=== PATIENT | female | born 1945 | race Caucasian/White ===

== ENCOUNTER 2016-11-20 13:19 | Emergency (ER) | payer OTHER ==
[~2016-11-20] VITALS: Ht 165.1 cm; Wt 83.5 kg
[~2016-11-20 13:19] MED LIST: TYLOTC500 PO
[2016-11-20 13:24] VITALS: Ht 165.1 cm; Wt 83.5 kg
[2016-11-20] MEDS ORDERED: ONDANSETRON INJ 2 MG/ML 2 ML VIAL IV STA (13:41)
[2016-11-20] MEDS ORDERED: SODIUM CHLORIDE 0.9% 500ML 500 ML IV STA (13:41)
[2016-11-20] MEDS ORDERED: HYDROmorphone INJ 1 MG/ML SYR IV STA (13:41)
[2016-11-20] MEDS ORDERED: HYDROmorphone INJ 1 MG/ML SYR ONE (13:42)
[2016-11-20] MEDS ORDERED: KETAMINE HCL INJ 50 MG/ML 10 ML VIAL IV STA (14:20)
[2016-11-20] MEDS ORDERED: PROPOFOL IV EMULSION 10 MG/ML 20 ML VIAL IV STA (14:20)
[2016-11-20] MEDS ORDERED: METOCLOPRAMIDE HCL INJ 5 MG/ML 2 ML VIAL ONE (14:21)
--- NOTE | 2016-11-20 14:21 | EMERGENCY ROOM VISIT NOTE ---
History Report prepared by Nahed: Asim Patel Under the Supervision of: Dr. Rhett Dumas M.D. First contact with patient: 13:40 Chief Complaint: HIP PAIN Stated Complaint: HIP PAIN History of Present Illness The patient is a 71 year old female who presents to the Emergency Room with complaints of sudden right hip pain starting prior to arrival. The patient currently rates her discomfort as an 8/10 in severity. The patient states that she was attempting to tie her shoes, and she felt pain, and she states that it felt like her hip is out. The patient states that this is the fifth time that this has happened after her hip has been replaced Source of History: patient Onset: prior to arrival Position: other (right hip) Symptom Intensity: 8/10 Timing: other (sudden) Review of Systems See HPI for pertinent positives & negatives. A total of 10 systems reviewed and were otherwise negative. Past Medical & Surgical Surgical Problems: (1) Cholecystectomy (2) Hysterectomy (3) Total replacement of hip Family History Patient reports no known family medical history. Social History Smoking Status: Never Smoker Marital Status: Housing Status: lives with significant other Occupation Status: retired Current/Historical Medications Scheduled PRN Acetaminophen (Tylenol), 500 MG PO UD PRN Allergies Coded Allergies: Acetaminophen (Verified Allergy, Unknown, ITCHING, 05/02/12) Hydrocodone (Verified Allergy, Unknown, ITCH, 05/08/12) Oxycodone (Verified Allergy, Unknown, ITCHING, 05/02/12) Physical Exam Vital Signs Date Time Temp Pulse Resp B/P Pulse Ox O2 Delivery O2 Flow Rate FiO2 11/20/16 14:55 92 16 127/79 97 Nasal Cannula 4.0 11/20/16 14:50 93 16 139/75 99 Nasal Cannula 4.0 11/20/16 14:48 90 14 127/77 99 Nasal Cannula 2.0 11/20/16 14:44 94 19 98 Nasal Cannula 2.0 11/20/16 14:39 101 10 92 Nasal Cannula 2.0 11/20/16 14:38 138/78 Nasal Cannula 2.0 11/20/16 14:34 94 11/20/16 14:34 92 10 Nasal Cannula 2.0 11/20/16 14:33 143/90 Nasal Cannula 2.0 154/92 11/20/16 14:28 90 16 138/90 98 Room Air 11/20/16 14:25 36.9 93 20 128/79 99 Nasal Cannula 2.0 11/20/16 13:24 36.5 78 18 123/86 100 Room Air Physical Exam GENERAL: Patient is a healthy-appearing well-nourished HEAD: Normocephalic atraumatic EYES: Ocular movements intact pupils equal and react to light OROPHARYNX mucous membranes are moist no exudates present no erythema or edema present NECK: Supple no nuchal rigidity CHEST: Good equal expansion LUNGS: Clear and equal to auscultation CARDIAC: Normal S1 and S2 ABDOMEN: Soft nontender no guarding BACK: No CVA tenderness EXTREMITIES: Right foot is shortened and externally rotated and neurovascularly intact. Good range of motion in the knee and ankle. No range of motion in the right hip. NEURO: Patient is following commands is answering questions appropriately. Alert and oriented x3 Cranial Nerves 2-12 grossly intact Medical Decision & Procedures ER Provider Diagnostic Interpretation: X-ray results as stated below per interpretation by me and the radiologist: SINGLE VIEW PELVIS; 2 VIEWS RIGHT FEMUR CLINICAL HISTORY: Right leg pain. FINDINGS: An AP pelvic radiograph with AP and crosstable lateral views of the right femur are compared to pelvic x-ray dated 09/03/2014. The skeletal structures are osteopenic. There is no radiographic evidence of fracture in the hips or bony pelvis. No right femoral fracture is seen. 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 There is superior and posterior dislocation of the femoral component of the arthroplasty. No periprosthetic lucency is identified. The right knee is grossly maintained. The soft tissues of the right thigh are normal as visualized. Small calcified pelvic phleboliths are incidentally noted. IMPRESSION: 1. There is dislocation of the femoral component of the right hip arthroplasty as above. 2. No fracture is seen in the hips, bony pelvis, or right femur. 3. Osteopenia and arthritic change as above. Electronically signed by: Fortino Pires M.D. 11/20/2016 2:34 PM Dictated Date/Time: 11/20/2016 2:31 PM SINGLE VIEW PELVIS; 2 VIEWS RIGHT FEMUR CLINICAL HISTORY: Right leg pain. FINDINGS: An AP pelvic radiograph with AP and crosstable lateral views of the right femur are compared to pelvic x-ray dated 09/03/2014. The skeletal structures are osteopenic. There is no radiographic evidence of fracture in the hips or bony pelvis. No right femoral fracture is seen. 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 There is superior and posterior dislocation of the femoral component of the arthroplasty. No periprosthetic lucency is identified. The right knee is grossly maintained. The soft tissues of the right thigh are normal as visualized. Small calcified pelvic phleboliths are incidentally noted. IMPRESSION: 1. There is dislocation of the femoral component of the right hip arthroplasty as above. 2. No fracture is seen in the hips, bony pelvis, or right femur. 3. Osteopenia and arthritic change as above. Electronically signed by: Fortino Pires M.D. 11/20/2016 2:34 PM Dictated Date/Time: 11/20/2016 2:31 PM RIGHT HIP 2 VIEWS CLINICAL HISTORY: Postreduction examination. FINDINGS: AP and crosstable lateral portable views of the right hip are correlated with radiographs of the right femur performed the same day 11/20/2016. The skeletal structures are osteopenic. There has been successful reduction of the dislocated right hip arthroplasty with judaism of near-anatomic alignment. No acute fracture is seen. No periprosthetic lucency is identified. The overlying soft tissues are normal as visualized. IMPRESSION: 1. There has been successful reduction of the dislocated right hip arthroplasty with judaism of near-anatomic alignment as compared to today's earlier examination. 2. No acute fracture is seen. Electronically signed by: Fortino Pires M.D. 11/20/2016 2:53 PM Dictated Date/Time: 11/20/2016 2:52 PM Medications Administered Medications (Trade) Dose Ordered Sig/Neo Route Start Time Stop Time Status Last Admin Dose Admin Hydromorphone HCl (Dilaudid Inj) 1 mg NOW STAT IV 11/20/16 13:41 11/20/16 13:43 DC 11/20/16 13:46 1 MG Ondansetron HCl 4 mg 4 mg NOW STAT IV 11/20/16 13:41 11/20/16 13:43 DC 11/20/16 13:50 4 MG Sodium Chloride (Nss 500ml) 500 ml @ 999 mls/hr Q31M STAT IV 11/20/16 13:41 11/20/16 14:11 DC 11/20/16 13:51 999 MLS/HR Ketamine HCl (Ketalar Steri-Vial Inj) 40 mg NOW STAT IV 11/20/16 14:20 11/20/16 14:21 DC 11/20/16 14:30 40 MG Propofol (Diprivan IV 20ML VIAL) 40 mg NOW STAT IV 11/20/16 14:20 11/20/16 14:21 DC 11/20/16 14:31 40 MG Metoclopramide HCl (Reglan Inj) 10 mg STK-MED ONCE .ROUTE 11/20/16 14:21 11/20/16 14:23 DC 11/20/16 14:30 10 MG Procedure Procedural Sedation Indication hip dislocation. Total time: 20 minutes. Written consent was obtained after the risks and benefits were explained to the patient, including, but not limited to aspiration, allergic reaction, breathing difficulties, cardiac complications, vomiting, pain, event recall, bleeding, and /or infection. Pre-sedation examination and paperwork completed. The patient was on 100% oxygen via NRB prior to the procedure. Continuos end tidal CO2 monitoring, pulse oximetry, and cardiac monitoring were utilized. Suction, airway equipment, medications, respiratory equipment, and appropriate personnel were prepared prior to the initiation of the procedure. A time out was taken. Sedation was achieved utilizing 40 mg of propofol and 40 mg of ketamine. After I observed the patient had reached the appropriate level of sedation the main procedure was performed without complication. Sedation was discontinued and the monitoring continued. The patient recovered quickly from the effects of the medication without complication or adverse event. ED Course 1341: Sodium Chloride 500 ml @ 999 mls/hr IV, Zofran Inj 4mg IV, Dilaudid Inj 1 mg IV 1405: Past medical records reviewed. The patient was evaluated in room C7. A complete history and physical examination was performed. 1420: Propofol 40mg IV, Ketamine HCl 40mg IV 1515: Upon reexamination the patient is resting. I discussed results and treatment plan with the patient. She verbalizes agreement and understanding. The patient is ready for discharge. Medical Decision This is a 71-year-old female who presents emergency Department with a hip dislocation of the right hip. The patient has had numerous dislocations of the second in the past however the last time was approximately 2 years ago. I had previously reduce this hip with this patient and therefore discussed doing a reduction again in the emergency department. The patient was in agreement with this. The patient was therefore consciously sedated as above. The hip was reduced by Dr. Jensen. Please see his separate dictation. Repeat examination revealed much improvement patient's symptoms. An IV was established by EMS and the patient was given morphine en route. She was given 1 mg of Dilaudid in the emergency department. Repeat examination revealed much improvement patient's symptoms. I did discuss the case with Dr. Mathis who asked that the patient follow-up in the office tomorrow. Patient was in agreement with the treatment plan. Impression Primary Impression: Hip dislocation, right Scribe Attestation The scribe's documentation has been prepared under my direction and personally reviewed by me in its entirety. I confirm that the note above accurately reflects all work, treatment, procedures, and medical decision making performed by me. Departure Information Dispostion Home / Self-Care Referrals Nisa Flanagan M.D. (PCP) Forms HOME CARE DOCUMENTATION FORM, IMPORTANT VISIT INFORMATION, WORK / SCHOOL INSTRUCTIONS Patient Instructions ED Sedation Procedural [place] Additional Instructions Follow up with Dr Groves's office on Monday You received narcotic or benzodiazepene medication while in the emergency room today. Do not drive, operate heavy machinery, or drink alcohol under the influence of this medication. You have been examined and treated today on an emergency basis only. This is not a substitute for, or an effort to provide, complete comprehensive medical care. It is impossible to recognize and treat all injuries or illnesses in a single emergency department visit. It is therefore important that you follow up closely with Dr flanagan. Call as soon as possible for an appointment. Thank you for your time and consideration. I look forward to speaking with you again soon. Please don't hesitate to call us if you have any questions. Problem Qualifiers Primary Impression: Hip dislocation, right Encounter type: initial encounter Qualified Codes: S73.004A - Unspecified dislocation of right hip, initial encounter
[2016-11-20 14:25] VITALS: BP 128/79; PULSE 93; TEMP 36.9; O2SAT 99
--- NOTE | 2016-11-20 14:36 | DIAGNOSTIC IMAGING REPORT ---
SINGLE VIEW PELVIS; 2 VIEWS RIGHT FEMUR CLINICAL HISTORY: Right leg pain. FINDINGS: An AP pelvic radiograph with AP and crosstable lateral views of the right femur are compared to pelvic x-ray dated 09/03/2014. The skeletal structures are osteopenic. There is no radiographic evidence of fracture in the hips or bony pelvis. No right femoral fracture is seen. 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 There is superior and posterior dislocation of the femoral component of the arthroplasty. No periprosthetic lucency is identified. The right knee is grossly maintained. The soft tissues of the right thigh are normal as visualized. Small calcified pelvic phleboliths are incidentally noted. IMPRESSION: 1. There is dislocation of the femoral component of the right hip arthroplasty as above. 2. No fracture is seen in the hips, bony pelvis, or right femur. 3. Osteopenia and arthritic change as above. Electronically signed by: Fortino Pires M.D. 11/20/2016 2:34 PM Dictated Date/Time: 11/20/2016 2:31 PM
--- NOTE | 2016-11-20 14:47 | EMERGENCY ROOM VISIT NOTE ---
ED Visit Note First contact with patient: 14:43 Hip reduction Indication: Right posterior hip dislocation Location: Right hip, previous surgical replacement. I discussed the procedure with the patient prior to her receiving sedation. Sedation was given by Dr. Rhett Dumas. Please see his note for details. Once the patient was properly sedated the right hip was brought into flexion perpendicular to the bed. Initially the leg was placed over top of my left leg with downward pressure on the right barnett. This did not reduce the dislocation initially. The right leg was brought up into flexion again at the hip. Internal/ external rotation while upward traction on the right femur was done. This successfully reduced the right hip. The leg was brought back down into extension. There is no longer a leg length discrepancy or rotational deformity noted to the right lower extremity. Post reduction x-rays revealed good reduction of the previously noted posterior right hip dislocation. The patient tolerated procedure well. She was reevaluated after the procedure and was awake and alert and had no further pain and right hip.
[2016-11-20 14:48] VITALS: BP 127/77; PULSE 90; O2SAT 99
--- NOTE | 2016-11-20 14:55 | DIAGNOSTIC IMAGING REPORT ---
RIGHT HIP 2 VIEWS CLINICAL HISTORY: Postreduction examination. FINDINGS: AP and crosstable lateral portable views of the right hip are correlated with radiographs of the right femur performed the same day 11/20/2016. The skeletal structures are osteopenic. There has been successful reduction of the dislocated right hip arthroplasty with scientologist of near-anatomic alignment. No acute fracture is seen. No periprosthetic lucency is identified. The overlying soft tissues are normal as visualized. IMPRESSION: 1. There has been successful reduction of the dislocated right hip arthroplasty with scientologist of near-anatomic alignment as compared to today's earlier examination. 2. No acute fracture is seen. Electronically signed by: Fortino Pires M.D. 11/20/2016 2:53 PM Dictated Date/Time: 11/20/2016 2:52 PM
[2016-11-20 15:32] VITALS: BP 117/79; PULSE 91; O2SAT 94
== END 2016-11-20 15:35 | disposition home or self-care (01) ==
LOC: EDBD 13:19 → C.EDC 13:20
DX: T84.020A Dislocation of internal right hip prosthesis, initial encounter (principal); X58.XXXA Exposure to other specified factors, initial encounter; Z90.49 Acquired absence of other specified parts of digestive tract; Z90.710 Acquired absence of both cervix and uterus; Z96.649 Presence of unspecified artificial hip joint